=== PATIENT | female | born 1990 | race Caucasian/White ===

== ENCOUNTER 2023-11-15 08:00 | Outpatient (CLI) | payer OTHER ==
[2023-11-15 18:16] LABS: CREATININE,URINE 16.4 mg/dL; TOTAL PROTEIN,URINE TIMED < 4 mg/dL
== END 2023-11-15 23:59 | disposition home or self-care (01) ==
LOC: LAB.WC 08:00
PROVIDERS: ATTEND Obstetrics & Gynecology
DX: Z34.00 Encounter for supervision of normal first pregnancy, unspecified trimester (principal)
CPT/HCPCS: 82570; 84156

== ENCOUNTER 2023-11-15 12:35 | Outpatient (CLI) | payer OTHER ==
[2023-11-15 13:52] LABS: BASOPHILS # (AUTO) 0.1 10^3/uL (0.0-0.1); BASOPHILS % (AUTO) 0.6 %; EOSINOPHILS # (AUTO) 0.3 10^3/uL (0.0-0.7); EOSINOPHILS % (AUTO) 2.3 %; HCT - HEMATOCRIT 37.3 % (37.0-47.0); HGB - HEMOGLOBIN 12.7 g/dL (12.0-16.0); LYMPHOCYTES # (AUTO) 1.8 10^3/uL (1.5-3.5); LYMPHOCYTES % (AUTO) 15.1 %; MONOCYTES # (AUTO) 0.6 10^3/uL (0.0-1.0); MONOCYTES % (AUTO) 5.4 %; NEUTROPHILS # (AUTO) 8.8 10^3/uL (1.5-6.6); NEUTROPHILS % (AUTO) 76.1 %; PLT - PLATELET COUNT 182 10^3/uL (130-450); RED CELL DISTRIBUTION WIDTH 12.4 % (12.0-15.0); WHITE BLOOD COUNT 11.6 x10^3/uL (4.8-10.8)
[2023-11-15 13:57] LABS: CREATININE,URINE 14.6 mg/dL; TOTAL PROTEIN,URINE TIMED < 4 mg/dL
[2023-11-15 14:05] LABS: ESTIMATED AVERAGE GLUCOSE 100 mg/dL (70-100); HEMOGLOBIN A1c% 5.1 % (4.27-6.07)
[2023-11-15 14:07] LABS: ALBUMIN 4.6 g/dL (3.2-5.5); ALBUMIN/GLOBULIN RATIO 1.6 (1.0-2.2); BILIRUBIN,TOTAL 0.7 mg/dL (0.2-1.0); CALCIUM 9.6 mg/dL (8.5-10.3); CREATININE 0.5 mg/dL (0.6-1.3); POTASSIUM 3.5 mmol/L (3.5-4.5); TOTAL PROTEIN 7.5 g/dL (6.4-8.9)
--- NOTE | 2023-11-15 14:13 | Ultrasound Report ---
PROCEDURE: OB 1st Trimester INDICATIONS: SUPERVISION, NORMAL FIRST OUTSIDE/PRIOR DATING DATA: Last menstrual period (LMP): 09/19/2023. LMP-based estimated date of delivery (SAMARA): 06/25/2024. First dating scan (date and location): 11/15/2023. Estimated date of delivery (SAMARA) from first dating scan: 06/27/2024. TECHNIQUE: Real-time scanning was performed of the fetus and maternal pelvic organs, with image documentation. COMPARISON: None. FINDINGS: Intrauterine gestational sac present. Embryo: Present, measuring 1.52 cm, 7 weeks 6 days Heart rate: 153 bpm. Other: No perigestational fluid collection. Measurement variability in dating: +/- 4 weeks by LMP, +/- 7 days by mean sac diameter (use before 6 weeks gestation if crown-rump length not able to be measured), +/- 5 days by crown-rump length (6-12 weeks gestation). Maternal organs: Ovaries appear within normal limits. IMPRESSION: Single living intrauterine at 7 weeks 6 days, SAMARA of 06/27/2024 based on today's exam. This is concordant with clinical dating. Reviewed by: Mehul Newton MD on 11/15/2023 2:12 PM PDT Approved by: Mehul Newton MD on 11/15/2023 2:12 PM PDT Station ID: [id number]
[2023-11-16 06:11] LABS: HBsAG SCREEN Negative (Negative); HIV SCREEN 4TH GENERATION Non Reactive (Non Reactive); RPR Non Reactive (Non Reactive)
[2023-11-16 08:11] LABS: VARICELLA-ZOSTER AB IGG 394 index (Immune >165)
[2023-11-17 05:09] LABS: HCV AB Non Reactive (Non Reactive)
== END 2023-11-15 12:36 | disposition home or self-care (01) ==
LOC: DI 12:35
PROVIDERS: ATTEND Obstetrics & Gynecology
DX: Z34.01 Encounter for supervision of normal first pregnancy, first trimester (principal); Z36.89 Encounter for other specified antenatal screening
CPT/HCPCS: 36415; 80053; 82570; 83036; 84156; 85025; 86592; 86762; 86787; 86803; 86850; 86900; 86901; 87340; 87389

== ENCOUNTER 2024-06-20 08:13 | Inpatient (IN) ==
[2024-06-20] MEDS ORDERED: METOCLOPRAMIDE 10 MG/2 ML VIAL IVP PRN ×2 (08:20→22:01)
[2024-06-20] MEDS ORDERED: METOCLOPRAMIDE 10 MG TABLET PO PRN (08:20)
[2024-06-20] MEDS ORDERED: lidocaine 1% 20 ML MDV ID PRN (08:20)
[2024-06-20] MEDS ORDERED: miSOPROStoL 200 MCG TABLET BC PRN (08:20)
[2024-06-20] MEDS ORDERED: fentaNYL 100 MCG/2 ML VIAL IVP PRN (08:20)
[2024-06-20] MEDS ORDERED: NIFEdipine 10 MG CAPSULE PO PRN (08:20)
[2024-06-20] MEDS ORDERED: SODIUM CHLORIDE FLUSH 0.9% 10 ML SYRINGE IVP PRN (08:20)
[2024-06-20] MEDS ORDERED: ONDANSETRON ODT 4 MG TABLET TL PRN (08:20)
[2024-06-20] MEDS ORDERED: LABETALOL 20 MG/4 ML SYRINGE IVP PRN ×3 (08:20)
[2024-06-20] MEDS ORDERED: METHYLERGONOVINE 0.2 MG/ML VIAL IM PRN (08:20)
[2024-06-20] MEDS ORDERED: PROMETHAZINE 25 MG TABLET PO PRN (08:20)
[2024-06-20] MEDS ORDERED: CARBOPROST TROMETHAMINE 250 MCG/ML VIAL IM PRN (08:20)
[2024-06-20] MEDS ORDERED: TRANEXAMIC ACID IN NACL 1,000 MG/100 ML BAG IV PRN (08:20)
[2024-06-20] MEDS ORDERED: hydrALAZINE INJ 20 MG/ML VIAL IVP PRN ×2 (08:20)
[2024-06-20] MEDS ORDERED: OXYTOCIN 10 UNIT/ML VIAL IM PRN (08:20)
[2024-06-20 09:45] LABS: BASOPHILS # (AUTO) 0.1 10^3/uL (0.0-0.1); BASOPHILS % (AUTO) 0.6 %; EOSINOPHILS # (AUTO) 0.1 10^3/uL (0.0-0.7); EOSINOPHILS % (AUTO) 1.4 %; HCT - HEMATOCRIT 36.2 % (37.0-47.0); HGB - HEMOGLOBIN 12.1 g/dL (12.0-16.0); LYMPHOCYTES # (AUTO) 1.3 10^3/uL (1.5-3.5); LYMPHOCYTES % (AUTO) 16.4 %; MEAN CORPUSCULAR HEMOGLOBIN 31.3 pg (27.0-31.0); MEAN CORPUSCULAR HGB CONC 33.4 g/dL (32.0-36.0); MEAN CORPUSCULAR VOLUME 93.5 fL (81.0-99.0); MONOCYTES # (AUTO) 0.5 10^3/uL (0.0-1.0); MONOCYTES % (AUTO) 6.4 %; NEUTROPHILS # (AUTO) 5.8 10^3/uL (1.5-6.6); NEUTROPHILS % (AUTO) 73.9 %; RED BLOOD COUNT 3.87 10^6/uL (4.20-5.40); RED CELL DISTRIBUTION WIDTH 13.5 % (12.0-15.0); WHITE BLOOD COUNT 7.9 x10^3/uL (4.8-10.8)
[2024-06-20 09:51] LABS: SLIDE REVIEW? Indicated
[2024-06-20 10:08] LABS: PLATELET ESTIMATE, MANUAL NORMAL (130-450,000) (NORMAL); PLATELET MORPHOLOGY PLATELET CLUMPING (NORMAL); RBC MORPHOLOGY (MULTIPLE) NORMAL APPEARANCE (NORMAL); WBC MORPHOLOGY (MULTIPLE) NORMAL APPEARANCE (NORMAL)
[2024-06-20 10:09] LABS: PLT - PLATELET COUNT 118 10^3/uL (130-450)
[2024-06-20] MEDS: miSOPROStoL 100 MCG TABLET BC SCH ×2 (10:11→15:54)
[2024-06-20] MEDS: LACTATED RINGERS 1,000 ML IV PRN ×2 (12:53→21:15)
--- NOTE | 2024-06-20 13:20 | HISTORY & PHYSICAL EXAMINATION ---
Admit History Smoking Status: Never smoker HPI Current : Vital Signs Temperature 98.2 F 06/20/24 09:19 Pulse Rate 94 06/20/24 09:19 Respiratory Rate 17 06/20/24 09:19 Blood Pressure 109/73 06/20/24 09:19 Meds/Allgy Home Medications Ambulatory Orders Medication Instructions Recorded Confirmed vits no.126-ferrous fum tab PO 12/31/23 06/18/24 28 mg iron-folic acid 800 mcg tablet (Classic ) aspirin 81 mg tablet,delayed 81 mg PO QDAY 01/08/24 06/18/24 release (Adult Aspirin Regimen) calcium carbonate 500 mg PO QDAY 03/24/24 06/18/24 famotidine 20 mg tablet 20 mg PO QDAY 03/24/24 06/18/24 blood-glucose meter #1 ea 03/31/24 06/04/24 blood sugar diagnostic #100 ea 05/20/24 06/04/24 lancets #200 ea 05/20/24 06/04/24 metformin 500 mg tablet,extended 500 mg PO BID #60 tabs 05/20/24 06/18/24 release 24 hr (Glucophage XR) Allergies Allergies Allergy/AdvReac Type Severity Reaction Status Date / Time No Known Drug Allergies Allergy Verified 06/11/24 09:03 PFSH Active Problems All Active Problems (Updated 05/20/24 @ 11:10 by Jacinto Lopez MD) White classification A2 gestational diabetes mellitus (GDM), insulin controlled (Acute) Gestational diabetes mellitus (GDM) affecting (Acute) Migraine headache without aura (Acute) Normal in first trimester (Acute) Medical History Medical History (Updated 05/20/24 @ 11:10 by Jacinto Lopez MD) GERD (gastroesophageal reflux disease) Ovarian cyst Migraines Depression Anxiety Surgical History Surgical History (Updated 12/31/23 @ 12:42 by Dayana Cardona MA) History of bunionectomy History of tonsillectomy Social History Social History (Updated 12/31/23 @ 12:40 by Dayana Cardona MA) Smoking Status: Never smoker Do you dip or chew tobacco?: No ETOH Use: None Substance Use: denies use Physical Abdominal Exam Vital Signs: Temp Pulse Resp BP 98.2 F 94 17 109/73 06/20/24 09:19 06/20/24 09:19 06/20/24 09:19 06/20/24 09:19 Plan for Labor Plan For Labor I expect patient to be DC'd or transferred within 96 hours.: Yes Plan for Labor: 06/20/2024 @ 1000 33 yo @ 39.2wks gestation by LMP c/w 7wk U/S presents to [facility] for medical induction of labor secondary to A2GDM. Upon arrival a cervical exam was deferred secondary to recent SVE in the clinic (/3, vertex) and she has not had contractions since that time. FHR baseline 140s, moderate variability, + accels, no decels. No contractions appreciated via tocometry. She has been a patient of [facility] since her transfer of care from [place], [place] at 16wks gestation. She has received consistent care and her has been complicated by gestational diabetes. She was started on Metformin at 35wks for improved control of her blood glucose, mostly elevated fasting values and her blood glucose has been much better controlled since that time. She will be admtited to [facility] for induction of labor. She is supported by her Humberto today. Dating criteria: LMP: 09/19/2023 SAMARA by LMP: 06/25/2024 US:11/15/23 @ 7+6 c/w LMP Final SAMARA: 06/25/2024 PROBLEMS: A2GDM -Most fastings above goal. Metformin started after discussing insulin. -Tracking blood glucose consistently. -Growth ultrasound ordered to be completed at 38 wks gestation Allergies: NKDA RX: Aspirin, PNV, Tums, Pepcid, Metformin FMHX: none Surgical: bunionectomy, tonsillectomy Social: Never smoker. No ETOH or IVDA. Works remote for [employer] in [place]. Originally from [place]. Brother's 1 week behind her with her 2nd baby in [place]. FOB Humberto in [place]. Moved here from [place] 2023. He has 15 and 13 yo in [place], healthy. Pre- Weight: 160 lb BMI: 28.52 Blood type: O+ Antibody: negative CBC:12.7/37.3/182 RUB:IMM VZV:IMM HBsAg: Neg HepC: NR RPR/AB-EIA: NR HIV: NR PAP:12/12/2023- today GC/CT:12/12/2023 HSV: denies in self and partner Genetic testing: NIPT Normal, AFP- negative Flu:12/12/2023 FAS: 02/16 Placenta: Anterior Cord: 3VC DEVANTE: 16.6cm EFW: 72% 50gm OGCT: 166 3HR GTT: F 96; 1hr 171; 2hr 159 3 hr 126 TDAP: 04/14/2024 Breast Pump: 03/24/2024 3rd trimester PLT 146 11.7/35.1 3rd trimester RPR NR GBS: POSITIVE Delivery plan: Desires epidural for pain management, okay all baby meds, desires to breastfeed MOD: Anticipate Physical exam: Normocephalic, atraumatic Heart RRR w/o M/G/R Lungs CTAB Abdomen gravid, soft, nontender FHR baseline 150s, moderate variability, + accels, no decels No contractions appreciated via tocometry SVE deferred (most recent exam and vertex) Bilateral LE's trace edema Mood is good Assessment: 34yo @ 39.2wks gestation by LMP c/w 7wk U/S A2GDM Induction of labor FHR Category I GBS positive Plan: Admit to [facility] for medical induction of labor secondary to A2GDM. Misoprostol q 4 hrs for pre-induction cervical ripening to continue x 12 hours. SVE at that time and consider cervical ripening balloon PRN. Initiate ampicillin for GBS prophylaxis per protocol with SROM or active labor. Blood glucose at 2 hour postprandial until no longer eating or active labor onset, then increase frequency to q2hrs. Continues 1000mg metformin qhs. Continuous monitoring. director call physician notified of patient admission. Jaccuzzi PRN. Nitrous oxide PRN. Epidural per maternal request. Anticipate . Conclusion/Plan Lab Results 06/20/24 09:20
[2024-06-20] MEDS: CALCIUM CARBONATE CHEW 500 MG TABLET PO PRN (14:08)
[2024-06-20] MEDS ORDERED: TERBUTALINE 1 MG/ML VIAL SUBQ PRN (20:12)
--- NOTE | 2024-06-20 20:24 | PROVIDER PROGRESS NOTE ---
Labor Progress Note Labor Progress Note Labor Progress Note/Additional Text: S: Feeling menstrual-like cramping with contractions. She states she feels like the contractions this morning were more uncomfortable than the ones she has been having now. She is feeling well overall and she denies questions or concerns at this time. Partner Humberto is supportive at the bedside. O: FHR baseline 140, moderate variability, + accels, occasional variable decel - overall reassuring Contractions palpate mild every 2-5 minutes with soft resting tone SVE 3-4/90/-1, soft, vertex. AROM occurred and was noted to be a small amount of clear fluid A: 34yo @ 39.2wks gestation by LMP c/w 7.2wks gestation Early labor A2GDM GBS positive FHR Category II P: Expectant management x 4 hours, then initiate pitocin for augmentation of labor with titration per protocol. Continuous monitoring. Jacuzzi PRN. Nitrous oxide PRN. Epidural per maternal request. Anticipate .
[2024-06-20] MEDS: AMPICILLIN 2 GM in SODIUM CHLORIDE 0.9% MINIBAG 100 ML IV ONE (20:31)
[2024-06-20] MEDS ORDERED: LIDOCAINE 2%-EPI 1:100000 20 ML MDV ONE (21:03)
[2024-06-20] MEDS ORDERED: ROPIVACAINE 0.2% 200 MG/100 ML BAG EP ONE (21:03)
--- NOTE | 2024-06-20 21:58 | ANESTHESIA PROCEDURE NOTE ---
Pre-Anesthesia VS, & Labs Diagnosis Surgical Diagnosis:: desires labor epidural Procedure Procedure: placement of labor epidural Vitals Vital Signs: Temp Pulse Resp BP 36.8 C 94 17 109/73 06/20/24 09:19 06/20/24 09:19 06/20/24 09:19 06/20/24 09:19 Height (in): 5 ft 2 in Weight (kg): 88 kg Body Mass Index: 35.4 BMI Classification: Obese NPO Last Fluid Intake: taking PO currently Is Patient ?: Yes Estimated Due Date:: 06/20/24 Lab Results Current Lab Results: Laboratory Tests 06/20/24 18:41: POC Whole Bld Glucose 108 06/20/24 13:38: POC Whole Bld Glucose 147 06/20/24 09:20: WBC 7.9, RBC 3.87 L, Hgb 12.1, Hct 36.2 L, MCV 93.5, MCH 31.3 H, MCHC 33.4, RDW 13.5, Plt Count 118 L, Neut # (Auto) 5.8, Lymph # (Auto) 1.3 L, [place] # (Auto) 0.5, Eos # (Auto) 0.1, Baso # (Auto) 0.1, Absolute Nucleated RBC 0.00, Nucleated RBC % 0.0, Manual Slide Review Indicated, WBC Morphology NORMAL APPEARANCE, Platelet Estimate NORMAL (130-450,000), Platelet Morphology PLATELET CLUMPING, RBC Morph Micro Appear NORMAL APPEARANCE, Blood Type O POSITIVE, Antibody Screen NEGATIVE Lab results reviewed: Yes 06/20/24 09:20 Meds/Allgy Home Medications Ambulatory Orders Medication Instructions Recorded Confirmed vits no.126-ferrous fum tab PO 12/31/23 06/18/24 28 mg iron-folic acid 800 mcg tablet (Classic ) aspirin 81 mg tablet,delayed 81 mg PO QDAY 01/08/24 06/18/24 release (Adult Aspirin Regimen) calcium carbonate 500 mg PO QDAY 03/24/24 06/18/24 famotidine 20 mg tablet 20 mg PO QDAY 03/24/24 06/18/24 blood-glucose meter #1 ea 03/31/24 06/04/24 blood sugar diagnostic #100 ea 05/20/24 06/04/24 lancets #200 ea 05/20/24 06/04/24 metformin 500 mg tablet,extended 500 mg PO BID #60 tabs 05/20/24 06/18/24 release 24 hr (Glucophage XR) Allergies Allergies Allergy/AdvReac Type Severity Reaction Status Date / Time No Known Drug Allergies Allergy Verified 06/11/24 09:03 PFSH Active Problems All Active Problems White classification A2 gestational diabetes mellitus (GDM), insulin controlled (Acute) Gestational diabetes mellitus (GDM) affecting (Acute) Migraine headache without aura (Acute) Normal in first trimester (Acute) Medical History Medical History GERD (gastroesophageal reflux disease) Ovarian cyst Migraines Depression Anxiety Surgical History Surgical History History of bunionectomy History of tonsillectomy Social History Social History Smoking Status: Never smoker Do you dip or chew tobacco?: No ETOH Use: None Substance Use: denies use POLST Patient has POLST: No Anesthesia Exam (Expanded) Exam General: Mild distress Dental: WNL Mouth Openin Fingerbreadth Neck Mobility: Normal Mallampati classification: II Thyromental Distance: 4-6 cm Abdomen: Other (gestational diabetes; on metformin; sugars have within range) Plan Problem List (1) Gestational diabetes mellitus (GDM) affecting : (2) Migraine headache without aura: (3) Normal in first trimester: (4) GERD (gastroesophageal reflux disease): Plan Anesthesia Type: Epidural Consent for Procedure(s) Verified and Reviewed: Yes Code Status: Attempt Resuscitation ASA Classification ASA classification: 2-Mild systemic disease Is this case an emergency?: No
[2024-06-20] MEDS ORDERED: ROPIVACAINE 0.2% 200 MG/100 ML BAG EP PRN (22:01)
[2024-06-20] MEDS ORDERED: NALOXONE 0.4 MG/ML VIAL IVP PRN (22:01)
[2024-06-20] MEDS ORDERED: NALBUPHINE 10 MG/ML AMP IVP PRN (22:01)
[2024-06-20] MEDS ORDERED: ePHEDrine 50 MG/ML VIAL IVP PRN (22:01)
[2024-06-20] MEDS ORDERED: diphenhydrAMINE INJ 50 MG/ML VIAL IVP PRN (22:01)
[2024-06-20] MEDS ORDERED: ONDANSETRON 4 MG/2 ML VIAL IVP PRN (22:01)
[2024-06-20] MEDS ORDERED: LACTATED RINGERS 500 ML IV ONE (22:01)
[2024-06-20] MEDS: metFORMIN 500 MG TABLET PO SCH (22:46)
[2024-06-21] MEDS: AMPICILLIN 1 GM in SODIUM CHLORIDE 0.9% MINIBAG 100 ML IV SCH (00:29)
[2024-06-21] MEDS: ONDANSETRON 4 MG/2 ML VIAL IVP PRN (02:15)
[2024-06-21] MEDS: OXYTOCIN/SODIUM CHLORIDE 500 ML IV PRN (02:43)
[2024-06-21] MEDS ORDERED: SIMETHICONE CHEW 80 MG TABLET PO PRN (03:26)
[2024-06-21] MEDS ORDERED: HYDROCORTISONE 1% CREAM 28 GM TUBE TOP PRN (03:26)
[2024-06-21] MEDS ORDERED: WITCH HAZEL/GLYCERIN 1 PAD TOP PRN (03:26)
[2024-06-21] MEDS ORDERED: OXYTOCIN/SODIUM CHLORIDE 500 ML IV PRN (03:26)
--- NOTE | 2024-06-21 03:35 | DELIVERY NOTE ---
Delivery Note Delivery Comments (Free Text/Narrative) Delivery Comments (Free Text/Narrative): Labor: This 34yo @ 39.9wks gestation by LMP c/w 7wk U/S presented to [facility] for medical induction of labor secondary to A2GDM on Metformin 1000mg qhs. Initial cervical exam deferred. Vertex confirmed by Fernando's. She received 1 dose of 50mcg BC misoprostol followed by 1 dose of 25mcg BC misoprostol for effective pre-induction cervical ripening. AROM occurred for induction of labor on 06/20/2024 @ 1955. FHR demonstrated Category I pattern with intermittent periods of Category II throughout labor but overall remained reassuring the moderate variabilitiy. Normal labor course. Epidural placed per maternal re quest. She progressed to c/c/+1 at 0143 on 06/21/2024 with onset of spontaneous pushing at 0155. : Normal SVB of viable male infant on 06/21/2024 @ 0236. Nucal cord x 2 was reduced. The was placed on maternal abdomen, stimulated, dried, and placed skin to skin. 's were 8/9 at 1 and 5 min respectively. Pitocin administered via IV for hemostasis. The umbilical cord was allowed to stop pulsating at which time it was doubly clamped by CNM and cut by FOB. Cord blood was obtained. The umbilical cord was thoroughly examined in multiple segments and noted to be a 2VC. Fundal massage and gentle cord traction applied for active management of the third stage. Placenta delivered spontaneously and intact at 0243. EBL 100mL. Fourth stage: Uterine fundus firm and there is no excessive bleeding. The perineum, vagina, and cervix were inspected and found to be intact. There was noted to be bilateral superficial labial abrasions. The left abrasion was hemostatic however the right abrasion required repair which was performed using a 4-0 vicryl on a SH-1 needle in standard fashion and under steriole conditions. Tissues well approximated. initiated. Both mother and baby were left in stable condition.
[2024-06-21] MEDS: IBUPROFEN 800 MG TABLET PO PRN (05:03)
[2024-06-21] MEDS: ACETAMINOPHEN 325 MG TABLET PO PRN (05:03)
[2024-06-21] MEDS: ACETAMINOPHEN 500 MG TABLET PO PRN (12:30)
[2024-06-21 14:34] VITALS: O2SAT 97
[2024-06-21] MEDS: DOCUSATE SODIUM 100 MG CAPSULE PO SCH (16:03)
[2024-06-22 00:11] VITALS: BP 105/74
[2024-06-22 00:21] VITALS: TEMP 98.2
[2024-06-22] MEDS: ACETAMINOPHEN 500 MG TABLET PO PRN (04:22)
--- NOTE | 2024-06-22 07:38 | Discharge Summary ---
Discharge Summary HPI History of Present Illness: Date of Admission: 06/20/2024 Date of Discharge: 06/22/2024 Diagnosis on admission: 34yo @ 39.2wks gestation by LMP c/w 7wk U/S A2GDM Induction of labor FHR Category I GBS positive Diagnosis on Discharge 34 yo PPD #1 Physical exam: Normocephalic, atraumatic Normal uterine involution, FF below umbilicus Small rubra bleeding minimal perineal discomfort. Bilateral LE's no edema Mood is good. Brief History: This 34yo @ 39.9wks gestation by LMP c/w 7wk U/S presented to [facility] for medical induction of labor secondary to A2GDM on Metformin 1000mg qhs. Initial cervical exam deferred. She received 1 dose of 50mcg BC misoprostol followed by 1 dose of 25mcg BC misoprostol for effective pre-induction cervical ripening. AROM occurred for induction of labor on 06/20/2024 @ 1955. FHR demonstrated Category I pattern with intermittent periods of Category II throughout labor but overall remained reassuring the moderate variabilitiy. Normal labor course. Epidural placed per maternal request. She progressed to c/c/+1 at 0143 on 06/21/2024 with onset of spontaneous pushing at 0155. : Normal SVB of viable male infant on 06/21/2024 @ 0236. Nucal cord x 2 was reduced. The was placed on maternal abdomen, stimulated, dried, and placed skin to skin. 's were 8/9 at 1 and 5 min respectively. Pitocin administered via IV for hemostasis. The umbilical cord was allowed to stop pulsating at which time it was doubly clamped by CNM and cut by FOB. Cord blood was obtained. The umbilical cord was thoroughly examined in multiple segments and noted to be a 2VC. Fundal massage and gentle cord traction applied for active management of the third stage. Placenta delivered spontaneously and intact at 0243. EBL 100mL. Fourth stage: Uterine fundus firm and there is no excessive bleeding. The perineum, vagina, and cervix were inspected and found to be intact. There was noted to be bilateral superficial labial abrasions. The left abrasion was hemostatic however the right abrasion required repair which was performed using a 4-0 vicryl on a SH-1 needle in standard fashion and under steriole conditions. Tissues well approximated. . She has been doing well in her course. She is ambulating and tolerating a regular diet. She is urinating without difficulty and her lochia is normal. Her pain is well controlled without narcotic management. She will be discharged to home today on day #1 and encouraged IBU, tylenol and stool softeners PRN. She intends to follow up with [facility] in 1 week for telehealth. She has been given precautions to call if she has any new or worsening sx such as fevers, chills, abdominal pain, increasing bleeding, or foul smelling vaginal lochia. preeclamptic precautions reviewed as well. VZV: immune Rubella: immune RH: O+ ALLERGIES Allergies Allergy/AdvReac Type Severity Reaction Status Date / Time No Known Drug Allergies Allergy Verified 06/11/24 09:03 MEDICATIONS Ambulatory Orders Medication Instructions Recorded Confirmed vits no.126-ferrous fum 1 tab PO DAILY 12/31/23 06/22/24 28 mg iron-folic acid 800 mcg tablet (Classic ) famotidine 20 mg tablet 20 mg PO QDAY 03/24/24 06/22/24 PHYSICAL EXAM AT DISCHARGE Vital Signs: Vital Signs x48h Temp Pulse Resp BP 06/22/24 00:11 36.8 C 76 18 105/74 LABS 06/20/24 09:20 Discharge Plan Discharge Patient Disposition: Home, Self Care Prescriptions: Continued Classic 28 mg iron- 800 mcg tablet 1 tab PO DAILY famotidine 20 mg tablet 20 mg PO QDAY Discontinued (DME) blood-glucose meter Kit See Rx Instructions .Route Qty: 1 0RF Rx Instructions: 4 times per day as directed (DME) lancets Misc See Rx Instructions .Route Qty: 200 4RF Rx Instructions: 4 times per day as directed (DME) blood sugar diagnostic Strip See Rx Instructions .Route Qty: 100 8RF Rx Instructions: 4 times per day via meter as directed aspirin [Adult Aspirin Regimen] 81 mg tablet,delayed release (DR/EC) 81 mg PO QDAY Print Language: Citizen Of [place] Patient Instructions: Breastfeed Holds Follow-up Care: Mai Vu, MIMI, EASTER BUNNY [Primary Care Provider] -
--- NOTE | 2024-06-22 12:15 | PHARMACY PROGRESS NOTE ---
Best Possible Medication History Admit Date and Time: 06/20/24 [id number] Home Medications Medication Instructions Recorded Confirmed Type vits no.126-ferrous fum 1 tab PO DAILY 12/31/23 06/22/24 History 28 mg iron-folic acid 800 mcg tablet (Classic ) aspirin 81 mg tablet,delayed 81 mg PO QDAY 01/08/24 06/22/24 History release (Adult Aspirin Regimen) famotidine 20 mg tablet 20 mg PO QDAY 03/24/24 06/22/24 History blood-glucose meter #1 ea 03/31/24 06/04/24 Rx blood sugar diagnostic #100 ea 05/20/24 06/04/24 Rx lancets #200 ea 05/20/24 06/04/24 Rx Processed by: Pharmacy Medications reviewed in ED?: No Medication History completed: Yes Patient Interview: Completed Secondary Source(s): Insurance records BPM Statement: Per mainframe systems programmer and RN interview with patient. [employer] records also reviewed. As the person ultimately responsible for medication therapy, providers are able to order a medication from an existing home medication list in [facility] via the "Reconcile Routine" prior to Confirmation of that medication by business support liaison. Such practice is discouraged except when the physician, in their clinical j udgment, deems that a medical need exists for a medication without regard to previous use.
--- NOTE | 2024-06-22 13:48 | Labor Flowsheet ---
Labor Flowsheet Datetime Report Generated by CPN: 06/22/2024 13:47 Datetime: 06/22/2024 11:35 VITAL SIGNS NBP Sys/Melyssa/Mean (mmHg): 110 : 71 : 79 Pulse: 74 Datetime: 06/21/2024 07:00 Stage of : Datetime: 06/21/2024 04:45 Temperature (C): 36.8 Temperature Route: Oral Datetime: 06/21/2024 03:29 Membranes Ruptured Date/Time: 06/20/2024 19:58 Datetime: 06/21/2024 02:36 UTERINE ACTIVITY Monitor Mode: External Frequency (min): 1.5-3 Quality: Strong Duration (sec): 60 Pattern: Normal: <= 5 Contractions in 10 Minutes Resting Tone (Palpate): Relaxed ASSESSMENT A Monitor Mode: Telemetry FHR Baseline Rate : 130 Variability: Moderate 6-25 bpm Decelerations: Variable Datetime: 06/21/2024 02:00 Accelerations: 15X15 Datetime: 06/21/2024 01:49 SpO2 (%): 99 LaborFlag: Labor Datetime: 06/21/2024 01:00 FHR Baseline Changes: No Baseline Change Datetime: 06/21/2024 00:00 Comments: with period of moderate variability Datetime: 06/20/2024 22:42 I/O Interventions: Chaudhry Cath Inserted Datetime: 06/20/2024 22:40 VAGINAL EXAM Dilatation (cm): 4.0 Effacement (%): 80 Station: -1 Exam by: Alba Cruz RNC Datetime: 06/20/2024 21:26 ANESTHESIA Anesthesia Plans: Epidural Epidural Procedure: Test Dose Datetime: 06/20/2024 21:20 PROCEDURE TIME OUT Procedure Verify: Correct Patient Identity; Correct Side and Site are Marked; Accurate Procedure Co nsent Form; Agreement on Procedure to be Done; Correct Patient Position; Relevant Images and Results are Properly Labeled and Displayed; Addressed Need to Administer Antibiotics or Fluids for Irrigation ; Safety Precautions Based on Patient History or Medication Use Epidural Positioning: Sitting Anesthesia Comments: procedure started Datetime: 06/20/2024 21:03 Patient Care Comments: sitting up for epidural placement Datetime: 06/20/2024 19:58 Membrane Status: Ruptured Membranes Rupture Method: Artificial Amniotic Fluid Color: Clear Amniotic Fluid Amount: Moderate Datetime: 06/20/2024 19:50 COMMUNICATION Communication: Provider at Bedside Datetime: 06/20/2024 19:30 Actions for Decelerations: Side to Side Datetime: 06/20/2024 19:27 Patient Position/Activity: Left Lateral Datetime: 06/20/2024 19:00 Monitor Interventions for UA: [place] Adjusted Contraction Comments: Indeterminate pattern due to maternal positioning. Category: Category I Datetime: 06/20/2024 18:43 Respirations: 16 Bedside Blood Glucose: 107 Datetime: 06/20/2024 15:54 MEDICATIONS Cervical Ripening Agents: Cytotec @ Medication Comments: buccal Datetime: 06/20/2024 13:01 Vital Sign Comments: BP Lateral up Datetime: 06/20/2024 12:53 PATIENT CARE IV/Blood Work: IV Bolus Started; IV Bag Number @ 1 Datetime: 06/20/2024 12:47 Communication Comments: C Mach RN to patient bedside to assess FHR. Noted patient lying mostly fla t on back. Repositioned patient and adjusted monitor to assess FHR vs. Maternal. Mai Lopez on unit, directly viewing the telemetry monitoring. Datetime: 06/20/2024 12:17 Strip Reviewed by: Mai Vu CNM Datetime: 06/20/2024 10:00 Monitor Interventions for FHR: Ultrasound Adjusted
== END 2024-06-22 13:25 | disposition home or self-care (01) | DRG 807 ==
LOC: WFO 08:13 → FBP 08:14
PROVIDERS: ATTEND Nurse Practitioner Obstetrics & Gynecology